=== PATIENT | male | born 1985 | race Caucasian/White ===

== ENCOUNTER 2020-08-21 14:12 | Emergency (ER) | payer SELFPAY ==
[2020-08-21 14:17] VITALS: BMI 24.3
[2020-08-21 14:22] VITALS: BP 143/92; PULSE 130; RESP 21; TEMP 37.6; O2SAT 95
--- NOTE | 2020-08-21 14:29 | W.ED.ALCOHOL ---
Documented by User: CHANA Khoury 08/22/20 08:36 HPI - Alcohol General: Chief Complaint: Alcohol Stated Complaint: ETOH Time Seen by Provider: 08/21/20 14:26 History of Present Illness: HPI narrative: Patient presents from [facility]. Patient was presented for intake at [facility] and was told that his alcohol level was too high at 200 some. And patient also going through withdrawals (he states). Patient has been drinking daily for years. Patient last drink was 4 hours ago. Patient said he is already starting withdrawal signs, with agitation and nervousness and shaking. Patient states he drinks about fifth of bourbon a day. MD complaint: alcohol withdrawal and alcohol dependence Last drink: Hours (ago) (4) Chronic alcohol use: Yes Recent trauma: No Associated symptoms: Reports no associated symptoms; Deny abdominal pain, depression, nausea or vomiting Review of Systems Const: Denies: fever(s), chills or body aches Eyes: Denies: change in vision or blurry vision ENMT: Denies: throat pain or nasal congestion Card: Denies: chest pain or dyspnea on exertion Resp: Denies: dyspnea, productive cough or non-productive cough GI: Denies: abdominal pain, nausea or vomiting : Denies: difficulty urinating Musc: Denies: extremity pain Skin/Breast: Denies: rash Neuro: Denies: headache(s) Psych: Reports: anxiety; Denies: depression Jhonatan/Lymph: Denies: easy bruising Physical Exam Const: COMMON NORMALS: no acute distress, average body habitus and patient oriented x3 HENMT: COMMON NORMALS: normocephalic HEAD & SCALP: normal to inspection and normocephalic FACE & SINUS: normal facial exam Eye: COMMON NORMALS: conjunctivae normal GENERAL EYE: appearance normal, both eyes and all related structures CONJUNCTIVA: Yes conjunctivae normal Neck/C-Spine: COMMON NORMALS: no JVD Chest: COMMONS NORMALS: normal inspection of the chest Resp: COMMON NORMALS: normal respiratory effort and clear to auscultation bilaterally AUSCULTATION: clear to auscultation bilaterally Cardio: COMMON NORMALS: no JVD and regular rhythm RATE: tachycardic RHYTHM: regular rhythm GI: COMMON NORMALS: Normal to inspection, nondistended, normoactive bowel sounds present Extremity: COMMON NORMALS: normal to inspection and full ROM Neuro: COMMON NORMALS: patient oriented x3 Course Vital Signs: Vital signs: Vital Signs Temperature 99.6 F 08/21/20 14:22 Pulse Rate 114 H 08/21/20 21:22 Respiratory Rate 18 08/21/20 21:22 Blood Pressure 172/100 08/21/20 21:22 Pulse Oximetry 98 08/21/20 21:22 MDM - Alcohol MDM Narrative: Medical decision making narrative: Currently said they will not take patient till alcohol level is below legal limit. Patient is EtOH level 0.28 right now and has been 0.8. Patient's ride left him, dropped off at [facility]. Patient has no money , no place to stay . Most likely will not be able to get into [facility] since they do not accept patients after or 5:00. I did inform patient of this. I did inform Dr. Pollack of patient's predicament. Lab Data: Labs: Lab Results 08/21/20 08/21/20 08/21/20 Range/Units 14:54 14:54 16:40 WBC 3.6 L (4.0-10.0) 10^3/ uL RBC 4.50 (4.1-5.3) 10^6/u L Hgb 14.1 (11.7-16.6) g/dL Hct 42.0 (42.0-52.0) % MCV 93.3 (80-94) fL MCH 31.3 (28.0-34.0) pg MCHC 33.6 (30.0-36.0) g/dL RDW 14.2 (12.1-15.1) % Plt Count 85 L (130-400) 10^3/c mm MPV 8.9 (7.4-10.4) fL Neut % (Auto) 54.9 % Lymph % (Auto) 32.6 % Laporte % (Auto) 7.5 % Eos % (Auto) 3.6 % Baso % (Auto) 1.1 % Neut # (Auto) 1.99 (1.8-7.7) 10^3/u L Lymph # (Auto) 1.2 (0.8-4.8) 10^3/u L Laporte # (Auto) 0.3 (0.2-0.9) 10^3/u L Eos # (Auto) 0.1 (0.0-0.8) 10^3/u L Baso # (Auto) 0.0 (0.0-0.1) 10^3/u L Nucleated RBC % (a uto) 0 % Nucleated RBCs # 0.0 /100WBC Sodium 144 (136-145) mmol/L Potassium 4.5 (3.5-5.1) mmol/L Chloride 106 (98-107) mmol/L Carbon Dioxide 27 (22-29) mmol/L Anion Gap 15.5 (5-19) BUN 14 (6-20) mg/dL Creatinine 0.9 (0.7-1.2) mg/dL GFR Calculation 95.5 (90-130) mL/min Glucose 104 (65-115) mg/dL Calculated Osmolal ity 299 H (285-295) mOsm/k g Calcium 8.9 (8.5-10.5) mg/dL Total Bilirubin 0.6 (0.15-1.2) mg/dL AST 92 H (0-40) U/L ALT 69 H (0-41) U/L Alkaline Phosphata se 80 (40-130) IU/L Total Protein 7.0 (6.6-8.7) g/dL Albumin 4.5 (3.5-5.2) g/dL Globulin 2.5 (1.3-4.6) g/dL Urine Color Carrie (Yellow) Urine Appearance Clear (CLEAR) Urine pH 6.5 (5-7) Ur Specific Gravit y 1.020 (1.005-1.030) Urine Protein Neg (Negative) Urine Glucose (UA) Norm (Normal) Urine Ketones Negative (Negative) Urine Blood Neg (Negative) Urine Nitrate Negative (Negative) Urine Bilirubin 1+ H (Negative) Urine Urobilinogen 4 H (Negative) mg/dL Ur Leukocyte Ariad[place] ase Negative (Negative) Urine Opiates Scre en (Negative) ng/mL Ur Barbiturates Sc reen (Negative) ng/mL Ur Phencyclidine S crn (Negative) ng/mL Ur Amphetamines Sc reen (Negative) ng/mL U Benzodiazepines Scrn (Negative) ng/mL Urine Cocaine Scre en (Negative) ng/mL U Marijuana (THC) Screen (Negative) ng/mL Ethyl Alcohol 280 H (0-10) mg/dL 08/21/20 08/21/20 Range/Units 16:40 19:02 WBC (4.0-10.0) 10^3/ uL RBC (4.1-5.3) 10^6/u L Hgb (11.7-16.6) g/dL Hct (42.0-52.0) % MCV (80-94) fL MCH (28.0-34.0) pg MCHC (30.0-36.0) g/dL RDW (12.1-15.1) % Plt Count (130-400) 10^3/c mm MPV (7.4-10.4) fL Neut % (Auto) % Lymph % (Auto) % Laporte % (Auto) % Eos % (Auto) % Baso % (Auto) % Neut # (Auto) (1.8-7.7) 10^3/u L Lymph # (Auto) (0.8-4.8) 10^3/u L [place] # (Auto) (0.2-0.9) 10^3/u L Eos # (Auto) (0.0-0.8) 10^3/u L Baso # (Auto) (0.0-0.1) 10^3/u L Nucleated RBC % (a uto) % Nucleated RBCs # /100WBC Sodium (136-145) mmol/L Potassium (3.5-5.1) mmol/L Chloride (98-107) mmol/L Carbon Dioxide (22-29) mmol/L Anion Gap (5-19) BUN (6-20) mg/dL Creatinine (0.7-1.2) mg/dL GFR Calculation (90-130) mL/min Glucose (65-115) mg/dL Calculated Osmolal ity (285-295) mOsm/k g Calcium (8.5-10.5) mg/dL Total Bilirubin (0.15-1.2) mg/dL AST (0-40) U/L ALT (0-41) U/L Alkaline Phosphata se (40-130) IU/L Total Protein (6.6-8.7) g/dL Albumin (3.5-5.2) g/dL Globulin (1.3-4.6) g/dL Urine Color (Yellow) Urine Appearance (CLEAR) Urine pH (5-7) Ur Specific Gravit y (1.005-1.030) Urine Protein (Negative) Urine Glucose (UA) (Normal) Urine Ketones (Negative) Urine Blood (Negative) Urine Nitrate (Negative) Urine Bilirubin (Negative) Urine Urobilinogen (Negative) mg/dL Ur Leukocyte Ariadne ase (Negative) Urine Opiates Scre en Negative (Negative) ng/mL Ur Barbiturates Sc reen Negative (Negative) ng/mL Ur Phencyclidine S crn Negative (Negative) ng/mL Ur Amphetamines Sc reen Negative (Negative) ng/mL U Benzodiazepines Scrn Negative (Negative) ng/mL Urine Cocaine Scre en Negative (Negative) ng/mL U Marijuana (THC) Screen Negative (Negative) ng/mL Ethyl Alcohol 182 H (0-10) mg/dL EKG Data^: EKG 1: EKG interpretation date: 08/21/20 EKG interpretation time: 15:02 Computer generated interpretation: Sinus tach ventricular rate 121 bpm TN interval 176 ms QRS duration 1 1 ms QT 296 ms Discharge Plan Discharge Patient Disposition: Home Clinical Impression: Alcoholic intoxication Qualifiers: Complication of substance-induced condition: uncomplicated Qualified Code(s): F10.920 - Alcohol use, unspecified with intoxication, uncomplicated Condition: Stable Prescriptions: New lorazepam 1 mg tablet 1 mg PO Q8H PRN (Reason: alcohol withdrawal) Qty: 14 RF: 0 No Action multivitamin Tablet 1 tab PO DAILY RF: 0 Flexeril 10 mg Tablet 10 mg PO TID PRN (Reason: Muscle Spasm) RF: 0 Zoloft 100 mg Tablet 100 mg PO QAM RF: 0 hydroxyzine HCl 25 mg Tablet 25 mg PO TID PRN (Reason: Anxiety) RF: 0 Claritin 10 mg Tablet 10 mg PO PRN RF: 0 Discharge Orders: Discharge ED (Routine); Ordered 08/21/20 Ordered By: Camacho Conde Discharge Diet: Usual diet Discharge Activity: Increase activity as tolerated Patient Instructions: Alcohol Abuse, Opioid Safety Activity Restrictions/Additional Instructions: Use medication as directed. Follow-up with rehab center in the morning. Avoid any alcohol use tonight. Return to the emergency department as needed. Follow-up with primary care as needed. Sign Out Sign Out Data: Patient Sign Out occurred on 08/21/20 at 16:59. Patient's care was discussed, and care was transferred from to Camacho Conde. Coding Level of Care Code ED Breakdown Man for Chg Fwd Exam Comprehensive Documented by User: CHANA Baker 08/21/20 21:23 HPI - Alcohol General: Chief Complaint: Alcohol Stated Complaint: ETOH Time Seen by Provider: 08/21/20 14:26 Course ED course: 1699, received patient from CHANA Khoury?C, we are awaiting repeat labs. Plan is for patient be discharge as EtOH decreases. Patient is to check into [facility] rehab tomorrow. 2044, patient is alert oriented responding appropriately to questions. Patient ambulates without difficulty. Repeat EtOH read 182. Patient denies any homicidal suicidal thoughts. Vital Signs: Vital signs: Vital Signs Temperature 99.6 F 08/21/20 14:22 Pulse Rate 114 H 08/21/20 21:22 Respiratory Rate 18 08/21/20 21:22 Blood Pressure 172/100 08/21/20 21:22 Pulse Oximetry 98 08/21/20 21:22 MDM - Alcohol Lab Data: Labs: Lab Results 08/21/20 08/21/20 08/21/20 Range/Units 14:54 14:54 16:40 WBC 3.6 L (4.0-10.0) 10^3/ uL RBC 4.50 (4.1-5.3) 10^6/u L Hgb 14.1 (11.7-16.6) g/dL Hct 42.0 (42.0-52.0) % MCV 93.3 (80-94) fL MCH 31.3 (28.0-34.0) pg MCHC 33.6 (30.0-36.0) g/dL RDW 14.2 (12.1-15.1) % Plt Count 85 L (130-400) 10^3/c mm MPV 8.9 (7.4-10.4) fL Neut % (Auto) 54.9 % Lymph % (Auto) 32.6 % Laporte % (Auto) 7.5 % Eos % (Auto) 3.6 % Baso % (Auto) 1.1 % Neut # (Auto) 1.99 (1.8-7.7) 10^3/u L Lymph # (Auto) 1.2 (0.8-4.8) 10^3/u L Laporte # (Auto) 0.3 (0.2-0.9) 10^3/u L Eos # (Auto) 0.1 (0.0-0.8) 10^3/u L Baso # (Auto) 0.0 (0.0-0.1) 10^3/u L Nucleated RBC % (a uto) 0 % Nucleated RBCs # 0.0 /100WBC Sodium 144 (136-145) mmol/L Potassium 4.5 (3.5-5.1) mmol/L Chloride 106 (98-107) mmol/L Carbon Dioxide 27 (22-29) mmol/L Anion Gap 15.5 (5-19) BUN 14 (6-20) mg/dL Creatinine 0.9 (0.7-1.2) mg/dL GFR Calculation 95.5 (90-130) mL/min Glucose 104 (65-115) mg/dL Calculated Osmolal ity 299 H (285-295) mOsm/k g Calcium 8.9 (8.5-10.5) mg/dL Total Bilirubin 0.6 (0.15-1.2) mg/dL AST 92 H (0-40) U/L ALT 69 H (0-41) U/L Alkaline Phosphata se 80 (40-130) IU/L Total Protein 7.0 (6.6-8.7) g/dL Albumin 4.5 (3.5-5.2) g/dL Globulin 2.5 (1.3-4.6) g/dL Urine Color Carrie (Yellow) Urine Appearance Clear (CLEAR) Urine pH 6.5 (5-7) Ur Specific Gravit y 1.020 (1.005-1.030) Urine Protein Neg (Negative) Urine Glucose (UA) Norm (Normal) Urine Ketones Negative (Negative) Urine Blood Neg (Negative) Urine Nitrate Negative (Negative) Urine Bilirubin 1+ H (Negative) Urine Urobilinogen 4 H (Negative) mg/dL Ur Leukocyte Ariadne ase Negative (Negative) Urine Opiates Scre en (Negative) ng/mL Ur Barbiturates Sc reen (Negative) ng/mL Ur Phencyclidine S crn (Negative) ng/mL Ur Amphetamines Sc reen (Negative) ng/mL U Benzodiazepines Scrn (Negative) ng/mL Urine Cocaine Scre en (Negative) ng/mL U Marijuana (THC) Screen (Negative) ng/mL Ethyl Alcohol 280 H (0-10) mg/dL 08/21/20 08/21/20 Range/Units 16:40 19:02 WBC (4.0-10.0) 10^3/ uL RBC (4.1-5.3) 10^6/u L Hgb (11.7-16.6) g/dL Hct (42.0-52.0) % MCV (80-94) fL MCH (28.0-34.0) pg MCHC (30.0-36.0) g/dL RDW (12.1-15.1) % Plt Count (130-400) 10^3/c mm MPV (7.4-10.4) fL Neut % (Auto) % Lymph % (Auto) % Laporte % (Auto) % Eos % (Auto) % Baso % (Auto) % Neut # (Auto) (1.8-7.7) 10^3/u L Lymph # (Auto) (0.8-4.8) 10^3/u L Laporte # (Auto) (0.2-0.9) 10^3/u L Eos # (Auto) (0.0-0.8) 10^3/u L Baso # (Auto) (0.0-0.1) 10^3/u L Nucleated RBC % (a uto) % Nucleated RBCs # /100WBC Sodium (136-145) mmol/L Potassium (3.5-5.1) mmol/L Chloride (98-107) mmol/L Carbon Dioxide (22-29) mmol/L Anion Gap (5-19) BUN (6-20) mg/dL Creatinine (0.7-1.2) mg/dL GFR Calculation (90-130) mL/min Glucose (65-115) mg/dL Calculated Osmolal ity (285-295) mOsm/k g Calcium (8.5-10.5) mg/dL Total Bilirubin (0.15-1.2) mg/dL AST (0-40) U/L ALT (0-41) U/L Alkaline Phosphata se (40-130) IU/L Total Protein (6.6-8.7) g/dL Albumin (3.5-5.2) g/dL Globulin (1.3-4.6) g/dL Urine Color (Yellow) Urine Appearance (CLEAR) Urine pH (5-7) Ur Specific Gravit y (1.005-1.030) Urine Protein (Negative) Urine Glucose (UA) (Normal) Urine Ketones (Negative) Urine Blood (Negative) Urine Nitrate (Negative) Urine Bilirubin (Negative) Urine Urobilinogen (Negative) mg/dL Ur Leukocyte Ariad[place] ase (Negative) Urine Opiates Scre en Negative (Negative) ng/mL Ur Barbiturates Sc reen Negative (Negative) ng/mL Ur Phencyclidine S crn Negative (Negative) ng/mL Ur Amphetamines Sc reen Negative (Negative) ng/mL U Benzodiazepines Scrn Negative (Negative) ng/mL Urine Cocaine Scre en Negative (Negative) ng/mL U Marijuana (THC) Screen Negative (Negative) ng/mL Ethyl Alcohol 182 H (0-10) mg/dL Discharge Plan Discharge Patient Disposition: Home Clinical Impression: Alcoholic intoxication Qualifiers: Complication of substance-induced condition: uncomplicated Qualified Code(s): F10.920 - Alcohol use, unspecified with intoxication, uncomplicated Condition: Stable Prescriptions: New lorazepam 1 mg tablet 1 mg PO Q8H PRN (Reason: alcohol withdrawal) Qty: 14 RF: 0 No Action multivitamin Tablet 1 tab PO DAILY RF: 0 Flexeril 10 mg Tablet 10 mg PO TID PRN (Reason: Muscle Spasm) RF: 0 Zoloft 100 mg Tablet 100 mg PO QAM RF: 0 hydroxyzine HCl 25 mg Tablet 25 mg PO TID PRN (Reason: Anxiety) RF: 0 Claritin 10 mg Tablet 10 mg PO PRN RF: 0 Discharge Orders: Discharge ED (Routine); Ordered 08/21/20 Ordered By: Camacho Conde Discharge Diet: Usual diet Discharge Activity: Increase activity as tolerated Patient Instructions: Alcohol Abuse, Opioid Safety Activity Restrictions/Additional Instructions: Use medication as directed. Follow-up with rehab center in the morning. Avoid any alcohol use tonight. Return to the emergency department as needed. Follow-up with primary care as needed. Sign Out Sign Out Data: Patient Sign Out occurred on 08/21/20 at 16:59. Patient's care was discussed, and care was transferred from to Camacho Conde. Coding Level of Care Code ED Breakdown Man for Robert Fwanil Exam Comprehensive
--- NOTE | 2020-08-21 14:31 | XRR_ITS ---
PROCEDURE INFORMATION: Exam: XR Chest Exam date and time: 08/21/2020 2:31 PM Age: 34 years old Clinical indication: Other: ETOH withdrawal TECHNIQUE: Imaging protocol: XR of the chest. Views: 1 view. COMPARISON: No relevant prior studies available. FINDINGS: Lungs: Calcified right hilar nodes and/or mediastinal nodes and/or lung granulomas consistent with old granulomatous disease. Pleural spaces: Unremarkable. No pleural effusion. No pneumothorax. Heart/Mediastinum: Unremarkable. No cardiomegaly. Bones/joints: Unremarkable. XR/XR chest 1V portable [id number] IMPRESSION: No acute findings.
[2020-08-21 15:01] VITALS: BP 143/92; PULSE 118; RESP 18; O2SAT 96
[2020-08-21 15:04] LABS: Basophils % 1.1 %; Eosinophils # 0.1 10^3/uL (0.0-0.8); Eosinophils % 3.6 %; Hemoglobin 14.1 g/dL (11.7-16.6); Lymphocytes # 1.2 10^3/uL (0.8-4.8); Lymphocytes % 32.6 %; Mean Corpuscular HGB Conc 33.6 g/dL (30.0-36.0); Mean Corpuscular Hemoglobin 31.3 pg (28.0-34.0); Mean Corpuscular Volume 93.3 fL (80-94); Mean Platelet Volume 8.9 fL (7.4-10.4); Monocytes # 0.3 10^3/uL (0.2-0.9); Monocytes % 7.5 %; Neutrophils # 1.99 10^3/uL (1.8-7.7); Neutrophils % 54.9 %; Nucleated Red Blood Cells % 0 %; Platelet Count 85 10^3/cmm (130-400); Red Cell Distribution Width 14.2 % (12.1-15.1); White Blood Count 3.6 10^3/uL (4.0-10.0)
[2020-08-21] MEDS: LORazepam 1 mg Tablet PO ×2 (15:04→21:33)
[2020-08-21] MEDS: sodium chloride 0.9% 1,000 ML 999 ML IV (15:05)
[2020-08-21 15:22] LABS: Alanine Aminotransferase 69 U/L (0-41); Albumin Level 4.5 g/dL (3.5-5.2); Alcohol Level 280 mg/dL (0-10); Alkaline Phosphatase 80 IU/L (40-130); Anion Gap 15.5 (5-19); Aspartate Amino Transferase 92 U/L (0-40); Blood Urea Nitrogen 14 mg/dL (6-20); Calcium 8.9 mg/dL (8.5-10.5); Carbon Dioxide 27 mmol/L (22-29); Chloride 106 mmol/L (98-107); Creatinine Clr Calc Pharmacy 119.7997; Globulin 2.5 g/dL (1.3-4.6); Glomerular Filtration Rate 95.5 mL/min (90-130); Glucose 104 mg/dL (65-115); Osmolality Calculated 299 mOsm/kg (285-295); Potassium 4.5 mmol/L (3.5-5.1); Sodium 144 mmol/L (136-145); Total Bilirubin 0.6 mg/dL (0.15-1.2)
[2020-08-21 15:50] VITALS: BP 134/90; PULSE 121; RESP 18; O2SAT 96
[2020-08-21 16:47] LABS: Add Urine Microscopic? NO; Charge for UA Resulting for Rev
[2020-08-21 16:50] LABS: Bilirubin Urine 1+ (Negative); Blood Urine Neg (Negative); Glucose Urine UA Norm (Normal); Ketones Urine Negative (Negative); Leukocyte Esterase Urine Negative (Negative); Nitrate Urine Negative (Negative); Protein Urine Neg (Negative); Urine Appearance Clear (CLEAR); Urine Color Amber (Yellow); Urobilinogen Urine 4 mg/dL (Negative); pH Urine 6.5 (5-7)
[2020-08-21 16:58] LABS: Amphetamines Screen Urine Negative (Negative); Barbiturates Screen Urine Negative (Negative); Benzodiazepines Screen Urine Negative (Negative); Cocaine Screen Urine Negative (Negative); Opiate Screen Urine Negative (Negative); PCP Screen Urine Negative (Negative); THC Screen Urine Negative (Negative)
[2020-08-21 17:00] VITALS: BP 134/90; PULSE 113; RESP 18; O2SAT 96
[2020-08-21 20:29] LABS: Alcohol Level 182 mg/dL (0-10)
[2020-08-21 21:22] VITALS: BP 172/100; PULSE 114; RESP 18; O2SAT 98
== END 2020-08-21 21:24 | disposition home or self-care (01) ==
PROVIDERS: Nurse Practitioner Family; Emergency Provider Nurse Practitioner Family
DX: F10.920 Alcohol use, unspecified with intoxication, uncomplicated (principal); Y90.8 Blood alcohol level of 240 mg/100 ml or more
CPT/HCPCS: 71045; 80053; 80306; 80307; 81003; 85025; 96360; 99284; J7030